=== PATIENT | female | born 1945 | race Caucasian/White ===

== ENCOUNTER 2023-12-04 11:30 | Emergency (ER) | payer MEDICARE, BC ==
[~2023-12-04] VITALS: Ht 167.6 cm; Wt 78.0 kg
[2023-12-04] MEDS: ONDANSETRON HCL 4 MG ORAL DISINTEGRATING TAB PO ONE (12:21)
[2023-12-04] MEDS: TRAMADOL HCL 50 MG TAB PO ONE (12:22)
[2023-12-04 13:56] VITALS: PULSE 83; RESP 16; TEMP 98.5; O2SAT 98
[2023-12-04] MEDS ORDERED: CLINDAMYCIN HC300 MG PO (14:25)
[2023-12-04] MEDS ORDERED: ONDANSETRON ODT4 MG PO (14:25)
[2023-12-04] MEDS ORDERED: ULTRAM 50MG50 MG PO (14:25)
== END 2023-12-04 15:31 | disposition home or self-care (01) ==
LOC: FSED 11:35
DX: S63.591A Other specified sprain of right wrist, initial encounter (principal); L03.113 Cellulitis of right upper limb; W18.39XA Other fall on same level, initial encounter; Y92.89 Other specified places as the place of occurrence of the external cause; I10 Essential (primary) hypertension; E03.9 Hypothyroidism, unspecified
CPT/HCPCS: 29125; 73030; 73060; 73090; 73110; 73130; 99284; Q0162